=== PATIENT | female | born 1990 | race African-American/Black ===

== ENCOUNTER 2024-08-02 13:35 | Emergency (ER) | payer SELFPAY ==
[~2024-08-02] VITALS: Ht 154.9 cm; Wt 72.6 kg
[2024-08-02 13:48] VITALS: BP 150/101; PULSE 82; RESP 18; TEMP 98.2; O2SAT 100
[2024-08-02 14:04] LABS: HEMOGLOBIN 9.8 g/dL (12.0-15.0); MEAN CORP HGB 23.7 pg (26-34); MEAN CORP HGB CONCENTRATION 29.7 g/dL (33-36.5); MEAN CORP VOLUME 79.9 fL (78-100); RED BLOOD CELL 4.13 10^6/uL (4.00-5.20); RED CELL DISTRIBUTION WIDTH 17.5 % (11.5-14.5); WHITE BLOOD CELL 7.5 10^3/uL (4.5-11.0)
[2024-08-02 14:44] VITALS: BP 144/89; PULSE 80; RESP 18; TEMP 98.2; O2SAT 100
== END 2024-08-02 14:52 | disposition home or self-care (01) ==
LOC: ER 13:35
DX: N92.0 Excessive and frequent menstruation with regular cycle (principal)
CPT/HCPCS: 36415; 84703; 85027; 99283